=== PATIENT | female | born 1955 | race Caucasian/White ===

== ENCOUNTER 2016-09-04 14:10 | Outpatient (CLI) | payer MEDICAID | END 2016-09-04 14:11 | disposition home or self-care (01) | DX: Z12.31 Encounter for screening mammogram for malignant neoplasm of breast (principal) ==

== ENCOUNTER 2017-03-09 08:04 | Outpatient (CLI) | payer MEDICAID | END 2017-03-09 08:05 | disposition critical access hospital (66) | LOC: EMS 08:04 | PROVIDERS: ATTEND Surgery | DX: R52 Pain, unspecified (principal) | CPT/HCPCS: A0425; A0429 ==

== ENCOUNTER 2017-03-09 08:17 | Emergency (ER) | payer MEDICAID ==
[2017-03-09] MEDS ORDERED: LORazepam 2 MG/ML SYRINGE IVP STA (09:01)
[2017-03-09] MEDS ORDERED: LORazepam 2 MG/ML SYRINGE ONE (09:21)
[2017-03-09 09:32] LABS: BASOPHILS % (AUTO) 0.4 %; EOSINOPHILS # (AUTO) 0.1 10^3/uL (0.0-0.7); EOSINOPHILS % (AUTO) 1.2 %; HCT - HEMATOCRIT 37.1 % (37.0-47.0); HGB - HEMOGLOBIN 12.5 g/dL (12.0-16.0); LYMPHOCYTES # (AUTO) 2.1 10^3/uL (1.5-3.5); LYMPHOCYTES % (AUTO) 23.6 %; MEAN CORPUSCULAR HEMOGLOBIN 29.6 pg (27.0-31.0); MEAN CORPUSCULAR HGB CONC 33.6 g/dL (32.0-36.0); MEAN CORPUSCULAR VOLUME 88.2 fL (81.0-99.0); MONOCYTES # (AUTO) 0.6 10^3/uL (0.0-1.0); MONOCYTES % (AUTO) 6.3 %; NEUTROPHILS # (AUTO) 6.1 10^3/uL (1.5-6.6); NEUTROPHILS % (AUTO) 68.5 %; RED BLOOD COUNT 4.21 10^6/uL (4.20-5.40); RED CELL DISTRIBUTION WIDTH 12.9 % (12.0-15.0); UNCORRECTED WHITE BLOOD COUNT 8.8 x10^3/uL; WHITE BLOOD COUNT 8.8 x10^3/uL (4.8-10.8)
[2017-03-09 09:44] LABS: ALBUMIN/GLOBULIN RATIO 1.3 (1.0-2.2); BILIRUBIN,TOTAL 0.3 mg/dL (0.2-1.0); CALCIUM 8.9 mg/dL (8.5-10.3); CREATININE 0.8 mg/dL (0.4-1.0); POTASSIUM 3.3 mmol/L (3.5-5.0); TOTAL PROTEIN 7.2 g/dL (6.7-8.2)
--- NOTE | 2017-03-09 09:45 | XRAY Preliminary Report ---
Exam: XR Chest 1 View IMPRESSION: No acute cardio pulmonary changes. [facility] SITE ID: [id number]
--- NOTE | 2017-03-09 09:47 | XRAY Report ---
EXAM: CHEST RADIOGRAPHY EXAM DATE: 03/09/2017 09:22 AM. CLINICAL HISTORY: Dyspnea. COMPARISON: 03/27/2009. TECHNIQUE: 1 view. FINDINGS: The heart size appears within normal limits. Previous partial right pneumonectomy. No focal pulmonary consolidation or edema. IMPRESSION: No acute cardio pulmonary changes. [facility] Referring Provider Line: [phone] SITE ID: [id number]
[2017-03-09 10:12] LABS: BILIRUBIN,URINE NEGATIVE (NEGATIVE)
[2017-03-09 10:15] LABS: UA CHARGE (STRIP ONLY) YES; UR CULTURE IF IND NOT INDICATED
--- NOTE | 2017-03-09 12:16 | ED Physician Documentation ---
History of Present Illness - Stated complaint Stated Complaint: SOA - Chief complaint Chief Complaint: Resp - Additonal information Additional information: Patient is a 61-year-old female brought in by EMS for a multitude of complaints. She says she has pain all of her body and that she is swollen everywhere. She points an area on her medial right knee that appears to be an old area of soft tissue swelling and bruising. She says she has been falling a lot at home. She also complains of low back pain headaches nausea on occasion and feels like she needs pain medication. I also talked with the patient's brother who knows her quite well and was very concerned about her addiction. He says that he is currently in recovery in both her parents and everyone in her family is addicted. She is currently taking at least 12 mg of Dilaudid a day and also taking diazepam as well. He is concerned about her heavy use of narcotics. He feels she is probably using more than she tells us. He also mentions that she was in [place] at the emergency department last week for identical complaints. He said that they did a fairly significant workup and did not find anything unusual. Review of systems: For pertinent positive and negative questions for the review of systems please see history of present illness. Otherwise all other systems have been reviewed and are negative. 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 - Present Medications Home Medications: Ambulatory Orders Medication Instructions Recorded Confirmed Atenolol [Tenormin] 25 mg PO DAILY 03/09/17 03/09/17 Cyclobenzaprine [Flexeril] 5 mg PO TID 03/09/17 03/09/17 Estradiol [Estradiol] 2 mg PO DAILY 03/09/17 03/09/17 HYDROmorphone [Dilaudid] 2 mg PO Q4H 03/09/17 03/09/17 Lisinopril [Zestril] 20 mg PO DAILY 03/09/17 03/09/17 Mirtazapine [Remeron] 15 mg PO DAILY 03/09/17 03/09/17 Topiramate [Topiramate] 50 mg PO BID 03/09/17 03/09/17 - Allergies Allergies/Adverse Reactions: Allergies Allergy/AdvReac Type Severity Reaction Status Date / Time Beta-Blockers Allergy Unknown Verified 03/09/17 09:14 (Beta-Adrenergic Bloc esomeprazole magnesium * Allergy Unknown Verified 03/09/17 09:14 [From Nexium] metoprolol Allergy Unknown Verified 03/09/17 09:14 nadolol Allergy Unknown Verified 03/09/17 09:14 - Social History Does the pt smoke?: No Smoking Status: Unknown if ever smoked - Immunizations Immunizations are current?: Yes PD ED PE NORMAL - General General: Alert and oriented X 3, No acute distress - HEENT HEENT: Atraumatic, PERRL, EOMI - Cardiac Cardiac: RRR, No murmur, No gallop, No rub - Respiratory Respiratory: No respiratory distress - Abdomen Abdomen: Normal bowel sounds, Non distended - Derm Derm: Normal color, Warm and dry - Extremities Extremities: No deformity, No tenderness to palpate, Normal ROM s pain - Neuro Neuro: Alert and oriented X 3, No motor deficit, No sensory deficit - Psych Psych: Normal mood, Normal affect Results - Vitals Vitals: Vital Signs - 24 hr 03/09/17 08:21 Temperature 36.6 C Heart Rate 72 Respiratory 20 Rate Blood Pressure 138/62 H O2 Saturation 96 Oxygen O2 Source Room air - Labs Labs: Laboratory Tests 03/09/17 03/09/17 03/09/17 09:22 09:22 09:22 WBC 8.8 RBC 4.21 Hgb 12.5 Hct 37.1 MCV 88.2 MCH 29.6 MCHC 33.6 RDW 12.9 Plt Count 324 MPV 7.0 L Neut # 6.1 Lymph # 2.1 [place] # 0.6 Eos # 0.1 Baso # 0.0 Absolute Nucleated RBC 0.00 Nucleated RBCs 0.0 Sodium 137 Potassium 3.3 L Chloride 103 Carbon Dioxide 25 Anion Gap 9.0 BUN 11 Creatinine 0.8 Estimated GFR (MDRD) 73 L Glucose 103 H Calcium 8.9 Total Bilirubin 0.3 AST 16 ALT 15 Alkaline Phosphatase 59 Troponin I < 0.04 Total Protein 7.2 Albumin 4.1 Globulin 3.1 Albumin/Globulin Ratio 1.3 Lipase 26 Urine Color Urine Clarity Urine pH Ur Specific [place] Urine Protein Urine Glucose (UA) Urine Ketones Urine Occult Blood Urine Nitrite Urine Bilirubin Urine Urobilinogen Ur Leukocyte Esterase Ur Microscopic Review Urine Culture Comments 03/09/17 09:49 WBC RBC Hgb Hct MCV MCH MCHC RDW Plt Count MPV Neut # Lymph # [place] # Eos # Baso # Absolute Nucleated RBC Nucleated RBCs Sodium Potassium Chloride Carbon Dioxide Anion Gap BUN Creatinine Estimated GFR (MDRD) Glucose Calcium Total Bilirubin AST ALT Alkaline Phosphatase Troponin I Total Protein Albumin Globulin Albumin/Globulin Ratio Lipase Urine Color YELLOW Urine Clarity CLEAR Urine pH 7.0 Ur Specific [place] <=1.005 Urine Protein NEGATIVE Urine Glucose (UA) NEGATIVE Urine Ketones NEGATIVE Urine Occult Blood NEGATIVE Urine Nitrite NEGATIVE Urine Bilirubin NEGATIVE Urine Urobilinogen 0.2 (NORMAL) Ur Leukocyte Esterase NEGATIVE Ur Microscopic Review NOT INDICATED Urine Culture Comments NOT INDICATED PD MEDICAL DECISION MAKING - ED course ED course: This patient is a 61-year-old female with a long history of chronic pain hypertension migraines and anxiety who presents with a complaint of pain all over her body and edema all of her body. She does state that she falls on occasion which is confirmed by her brother and his are quite well. He does not believe that there is been any fall recently. He does live with her and is aware that she is taking these high doses of narcotics. He thinks that perhaps she may be taking more than she is supposed to. Or data shows that she is taking 12 mg of Dilaudid a day and diazepam.On my physical examination I see no obvious evidence of any soft tissue swelling anywhere in her body other than the area that looks subacute adjacent to the right knee. I carefully palpated her from head to toe. She has multiple vague complaints that do not fit into any one unified pattern. We did check a chest x-ray on her it shows no acute intrathoracic disease. EKG shows normal sinus rhythm with a normal, [place] QRS and QT intervals there is a very subtle T-wave inversion in V1 V2 and V3 but there are really no cardiac complaints chest x-ray shows no acute disease blood work on this patient is really unremarkable. She is given 1 mg of Ativan just to keep her compliant. The patient's brother is going to talk with her primary care physician Dr. Wiseman about her pain medication use. He feels that she is on much too high of a dose and she probably needs to be placed in a detoxification center. The patient does not want Help at this time and reducing her narcotic use. Disposition: To home Clinical impression: 1.Generalized aches and pains Departure - Departure Disposition: 01 Home, Self Care Clinical Impression: Body aches Condition: Good Instructions: Chronic Pain Therapies Mind Body
[2017-03-09 12:31] VITALS: BP 141/70
== END 2017-03-09 12:41 | disposition home or self-care (01) ==
LOC: EDUNIT# → ED 08:17
DX: M79.1 Myalgia (principal); G89.29 Other chronic pain
CPT/HCPCS: 36415; 71010; 80053; 81003; 83690; 84484; 85025; 96374; 99284; J2060; 81001; 87086

== ENCOUNTER 2017-11-02 12:33 | Outpatient (CLI) | payer MEDICAID ==
--- NOTE | 2017-11-04 18:11 | Mammography Report ---
DIGITAL SCREENING MAMMOGRAM: 11/02/2017 CLINICAL INDICATION: A 62-year-old nulliparous patient for screening. COMPARISON: 08/2016, 10/2013, 05/2011, 10/2009. TECHNIQUE: Routine CC and MLO projections were obtained of the breasts. FINDINGS: The breasts again demonstrate heterogeneously dense fibroglandular parenchyma bilaterally. Coarse and punctate, typically benign calcifications are present. No suspicious masses, clustered microcalcifications, or regions of architectural distortion are identified. IMPRESSION: BENIGN FINDINGS. RECOMMENDATION: ROUTINE ANNUAL SCREENING UNLESS OTHERWISE CLINICALLY INDICATED. BIRADS category 2 benign findings. STANDARD QUALIFYING STATEMENTS 1. This examination was reviewed with the aid of Computed-Aided Detection (CAD). 2. A negative or benign imaging report should not delay biopsy if clinically suspicious findings are present. Consider surgical consultation if warranted. More than 5% of cancers are not identified by imaging. 3. Dense breasts may obscure an underlying neoplasm. TD: 11/04/2017 18:10
== END 2017-11-02 12:34 | disposition home or self-care (01) ==
LOC: DI 12:33
PROVIDERS: ATTEND Family Medicine
DX: Z12.31 Encounter for screening mammogram for malignant neoplasm of breast (principal)
CPT/HCPCS: 77067

== ENCOUNTER 2018-12-10 16:02 | Outpatient (CLI) | payer MEDICAID ==
--- NOTE | 2018-12-14 10:40 | Mammography Report ---
Reason: ANNUAL SCREENING Procedure Date: 12/10/2018 Accession Number: [id number] / [id number] Procedure: MOOSE - Screening Mammo Dig Bilat CPT Code: FULL RESULT: EXAM: Screening Mammo Dig Bilat DATE: 12/10/2018 4:41 PM CLINICAL HISTORY: Screening examination. TECHNIQUE: (B) - Bilateral CC and MLO views were obtained. COMPARISON: 11/02/2017 PARENCHYMAL PATTERN: (D) - The breasts demonstrate heterogeneously dense fibroglandular parenchyma bilaterally. FINDINGS: No change in innumerable bilateral non-pleomorphic punctate microcalcifications. There are no suspicious masses, calcifications, or areas of distortion. IMPRESSION: Benign findings. BI-RADS category 2. RECOMMENDATION: (ANNUAL) - Recommend routine annual screening mammography. BI-RADS CATEGORY: (2) - Benign Findings. STANDARD QUALIFYING STATEMENTS: 1. This examination was not reviewed with the aid of Computer-Aided Detection (CAD). 2. A negative or benign imaging report should not preclude biopsy if clinically suspicious findings are present. 3. Dense breasts may obscure an underlying neoplasm. 4. This examination was reviewed without the aid of 3D breast imaging (tomosynthesis).
== END 2018-12-10 16:03 | disposition home or self-care (01) ==
LOC: DI 16:02
DX: Z12.31 Encounter for screening mammogram for malignant neoplasm of breast (principal)
CPT/HCPCS: 77067